=== PATIENT | female | born 1990 | race Caucasian/White ===

== ENCOUNTER 2025-02-07 02:42 | Day surgery (SDC) | payer OTHER, SELFPAY ==
--- NOTE | 2025-01-27 17:17 | PC.NURSE ---
Report to the Outpatient Waiting Room, entrance under the green pavilion located off [facility], at time 1100 on date 02/07/25. Planned Procedure Time: 1300.? Time changes happen often and if your time is changed the preop area will call you the afternoon before. - You and your visitor will be asked to self-screen and do not enter if you have any COVID symptoms. Please call surgeon if you need to reschedule. - A mask is optional within the hospital at this time. Patients may have clear liquids (water, carbonated beverages, clear teas, apple juice) until 3 hours prior to surgery with a maximum of 20 ounces. 1000 - No food from midnight until time of surgery and no smoking, or chewing tobacco (or any form of nicotine). No chewing gum, candy or mints. - Infants may have breast milk until 4 hours before surgery, infant formula 6 hours prior to surgery. - Children will be allowed to drink immediately following surgery.? If applicable, please bring a bottle or sippy cup to assist with drinking. Juice, water, soda, and popsicles are readily available.? For infants on formula, please bring formula the day of surgery.? Pacifiers are allowed. Take only the following medications with a SIP of water on the morning of surgery: N/A DO NOT STOP ANY OF YOUR OTHER PRESCRIPTION MEDICATIONS PRIOR TO SURGERY EXCEPT THE FOLLOWING Hold all vitamins and supplements for 3 days per anesthesiologist. Medications to discontinue per physician N/A Date to take last dose N/A Please no make-up, nail portuguese, hairspray, perfume, deodorant, or body powder the day of surgery.? No jewelry (including any body piercings) or valuables the day of surgery, leave them at home.? Please take a shower or bath the night before, or the morning of, surgery with an antibacterial soap.? Wear comfortable, loose fitting clothing.? Children are encouraged to wear pajamas. - Jewelry must be removed prior to entering the operating room.? Rings and piercings that are not removed may be cut off. - The hospital will not accept responsibility for valuables.? - Please leave all valuables, including medications, at home the day of surgery. If you are going home after surgery, a licensed auto parts delivery driver must drive you home.? - NO public transportation without another adult if you receive anesthesia. - We recommend that an adult stay with you for 24 hours following discharge. - We also recommend that you do not drive, make important decision, drink alcoholic beverages, or take any drugs that were not prescribed by your health care provider for at least 24 hours after your discharge time. For Pediatric surgeries, we recommend two adults accompany the child home. Follow any additional instructions given to you from your surgeon. Telephone instructions given to Patient- Luzma Francisco and asked if any additional questions and then verbalized understanding. Patient advised to call surgeon office or pre surgery nurse liaison [phone] if any additional questions.
[2025-01-27 17:23] VITALS: BMI 29.3
[2025-02-07] VITALS (7 sets, daily range): BP systolic 107–120; BP diastolic 64–78; PULSE 62–79; RESP 13–16; TEMP 36.4–36.6; O2SAT 98–100
--- NOTE | 2025-02-07 07:48 | P.HP_ITS ---
H&P: HPI History of Present Illness Date/Time: 02/07/25 07:48 Chief Complaint: desires sterilization Narrative: Patient is a 34 year old female who presents for laparoscopic bilateral salpingectomy. She has completed childbearing and would like a permanent form of control. No PSH. She and her partner have discussed their options and would like to move forward with bilateral salpingectomy. Review of Systems Review of Systems: All systems reviewed & are unremarkable except as noted in HPI and below PMFSH Social History Social History Smoking packs per day: 1 Smoking cigarettes per day: 20.0 Years smoked: 10 Smoking pack-years: 10.00 Smoking status: Former smoker Tobacco type: cigarettes and e-cigarettes/vaping Spiritual care concerns: No Meds Home Medications and Allergies Home Medications ?Medication ?Instructions ?Recorded ?Confirmed ?Type No Home Medications 01/27/25 01/27/25 H istory Allergies Allergy/AdvReac Type Severity Reaction Status Date / Time No Known Allergies Allergy Verified 01/27/25 17:10 Exam Const: General: comfortable and no acute distress Eyes: General: appearance normal, both eyes and all related structures Resp: Effort & Inspection: normal respiratory effort Cardio: Rate: regular rate Extrem: General: normal to inspection Psych: Mental Status: mental status grossly normal Assessment and Plan Assessment and plan (1) Encounter for sterilization: Code(s): Z30.2 - Encounter for sterilization Status: Acute Assessment and Plan: - patient desires permanent sterilization - discussed risks, benefits, and alternatives of bilateral salpingectomy, including risks of bleeding, infection and injury to surrounding organs. Also discussed alternative contraceptive options including partner vasectomy and patient declines. - tubal consent signed
[2025-02-07] MEDS: ACETAMINOPHEN 500 MG TABLET 1000 MG PO (09:52)
[2025-02-07] MEDS: LACTATED RINGERS 1,000 ML 30 ML IV CONT (09:57)
[2025-02-07] MEDS: KETOROLAC 15 MG/ML VIAL (*BKC) IV PUSH (09:58)
--- NOTE | 2025-02-07 10:11 | WPDHPUPDATE1 ---
History and Physical Update Update Date/Time: 02/07/25 10:11 History and Physical has been reviewed, including an updated exam of the patient. There are NO changes in the patient's condition. Risks, benefits, and alternatives have been discussed and questions answered. Patient agrees to proceed with procedure.
--- NOTE | 2025-02-07 10:29 | WPDANESEPPF ---
Anes - Initial Pre Proc Eval Procedure: Operation Date: 02/07/25 11:30 Proposed Procedures p Laparoscopic Bilateral Salpingectomy - Marcelo Cai MD Date/Time: 02/07/25 10:29 Surgeon: Marcelo Cai MD Pre Op Diagnosis: sterlization Patient Data Age: 34 Gender: F Height: 1.65 m Weight: 80 kg Allergies Allergy/AdvReac Type Severity Reaction Status Date / Time No Known Allergies Allergy Verified 02/07/25 10:00 Home Medications ?Medication ?Instructions ?Recorded ?Confirmed ?Type No Home Medications 01/27/25 01/27/25 History Patient hx anesthesia problems: none Family hx anesthesia problems: none Results Review: All pre-operative results and documents have been reviewed as part of the pre-operative evaluation. FOR[facility]LY [facility], [facility] Social History Social History Smoking packs per day: 1 Smoking cigarettes per day: 20.0 Years smoked: 10 Smoking pack-years: 10.00 Smoking status: Former smoker Tobacco type: cigarettes and e-cigarettes/vaping Spiritual care concerns: No Anes - Eval Final PreProcedure Day of Procedure 02/07/25 10:29 Patient weight: overweight Heart: regular rate and rhythm Lungs: clear to auscultation Airway: Mallampati scale class II Neurological: alert and oriented Last oral intake: >/= 8 hours ASA classification: II Emergent: no Anesthetic plan: proceed Anesthesia type and monitoring: general ETT and standard monitoring Results Review: All pre-operative results and documents have been reviewed as part of the pre-operative evaluation. Informed Consent: The patient's anesthetic plan and its attendant risks and benefits were discussed with the patient/family/POA. Questions were solicited and answers provided to the satisfaction of the patient/family/POA.
[2025-02-07 11:10] LABS: BEDSIDEPREGUCG Negative (Negative)
--- NOTE | 2025-02-07 11:48 | S_PTH ---
PATIENT: Luzma Francisco LOC: [facility] U#:[id number] AGE/SX: 34/F ROOM: RE02/07/[address]: Marcelo Cai MD : [id number] BED: DIS: 02/07/2025 SPEC #: [id number] RECD: 02/07/25 12:08 STATUS: BONILLA EUGENE #: [id number] CHRISTOS: 02/07/25 11:[address]: Marcelo Cai DEPT: [facility] Surgical RECD BY: Srini Villalta ENTERED: 02/07/25 12:08 SP TYPE: Surgical OTHR DR: [employer] PHYSICIAN Tissues: A - Fallopian Tube Bilateral Procedures: Gross and Microscopic Level 2 Hematoxylin and Eosin Stain
[2025-02-07] MEDS: SILVER NITRATE (*SP) STICK 3 EACH TOPICAL (11:55)
--- NOTE | 2025-02-07 12:01 | W.PM.PROC2 ---
Procedure Note - Detailed Date of Procedure 02/07/25 Pre-op Diagnosis desires sterilization Post-op Diagnosis Same Procedure Performed laparoscopic bilateral salpingectomy Surgeon Marcelo Cai MD Anesthesia General Indications desires permanent sterilization Findings normal appearing uterus, bilateral tubes and bilateral ovaries Description of Procedure With IV fluids infusing, the patient was taken to the operating room. The patient was placed in supine position. General anesthesia with endotracheal intubation was given. A time-out took place. The patient was placed in dorsal lithotomy position using Santo stirrups and she was prepped and draped in the usual sterile fashion. The bladder was drained using a red rubber catheter. A sterile speculum was placed vaginally, the anterior lip of the cervix was grasped with a single-tooth tenaculum and the acorn uterine manipulator was placed without difficulty. The speculum was removed. The surgeon's gloves were changed and attention was turned to the abdomen. A 5 mm incision was made in the umbilicus. Under direct visualization with the scope, the umbilical port was inserted without difficulty. Another two trocars were placed under direct visualization in the left upper and left lower quadrants. The patient was placed in Trendelenburg and inspection of the pelvis noted the above findings. Appropriate pictures were taken. Using the LigaSure device, a left salpingectomy was performed in the usual fashion. Care was taken to avoid the IP ligament. The salpingectomy went smoothly. The same procedure was repeated on the right side. The instruments were all removed from the abdomen and the CO2 gas was allowed to escape. The three skin incisions were reapproximated with 4-0 Polysorb in a subcuticular manner, followed by skin glue. The acorn manipulator and single tooth tenaculum was removed from the uterus and cervix, respectively. The tenaculum sites were hemostatic. All instruments were removed from the vagina. At the end of the case, instrument, sponge and needle counts were correct x 2. The patient was awakened from general anesthesia and was taken to PACU in stable condition. Estimated Blood Loss 5 Pathology Yes Complications No immediate complications Condition Stable Disposition Same day
[2025-02-07] MEDS: oxyCODONE HCL (*CRX) 5 MG TAB IR PO (13:17)
== END 2025-02-07 13:47 | disposition home or self-care (01) ==
PROVIDERS: Anesthesiology; Visit Provider Obstetrics & Gynecology
PROC: (CPT 49320; principal; 2025-02-07 11:30)
DX: Z30.2 Encounter for sterilization (principal); Z87.891 Personal history of nicotine dependence
CPT/HCPCS: 58661; 88302; A9270; J1100; J1885; J2003; J2250; J2405; J2704; J3010; J7120